=== PATIENT | male | born 1980 | race Caucasian/White ===

== ENCOUNTER 2018-10-03 13:51 | Inpatient (IN) | payer MEDICAID, OTHER ==
[~2018-10-03] VITALS: Ht 172.7 cm; Wt 71.7 kg
[2018-10-03] VITALS (16 sets, daily range): BP systolic 129–171; BP diastolic 76–101
[2018-10-03] MEDS ORDERED: LIDOCAINE 1%-EPI 1:100,000 20 ML VIAL ONE (14:07)
[2018-10-03] MEDS ORDERED: LIDOCAINE 1% INJ 50 ML MDV IJ ONE (14:23)
[2018-10-03] MEDS ORDERED: LIDOCAINE 1%-EPI 1:100,000 20 ML VIAL TP ONE (14:30)
[2018-10-03] MEDS ORDERED: HYDROCODONE/APAP 5/325MG 1 EACH TABLET ONE (14:40)
[2018-10-03] MEDS ORDERED: HYDROCODONE/APAP 5/325MG 1 EACH TABLET PO ONE (15:00)
[2018-10-03 15:29] LABS: BASOPHILS % (AUTO) 0.4 % (0.0-2.0); EOSINOPHILS % (AUTO) 0.7 % (0.0-6.0); HEMATOCRIT 35 % (39-51); HEMOGLOBIN 11.6 g/dL (13.5-17.5); LYMPHOCYTES # (AUTO) 0.9 /CMM (0.8-4.8); MEAN CORPUSCULAR HGB CONC 33 g/dl (31.0-36.0); MEAN CORPUSCULAR VOLUME 79 fL (80-96); MONOCYTES # (AUTO) 0.7 /CMM (0.1-1.30); MONOCYTES % (AUTO) 6.8 % (2.0-12.0); NEUTROPHILS # (AUTO) 8.3 /CMM (1.8-8.9); NEUTROPHILS % (AUTO) 83.1 % (43.0-81.0); PLATELET COUNT (AUTO) 348 /CMM (150-450)
[2018-10-03] MEDS ORDERED: IV NS 0.9% 500 ML BAG IV ONE (15:30)
[2018-10-03] MEDS ORDERED: ONDANSETRON HCL/PF 4 MG/2 ML VIAL IVP ONE (15:30)
[2018-10-03] MEDS ORDERED: LEVETIRACETAM (500MG) 1,000 MG in IV NS 0.9% 100 ML IV SCH ×4 (15:30)
[2018-10-03 15:39] LABS: CALCIUM, SERUM 8.6 mg/dL (8.5-10.1); CREATININE 0.9 mg/dL (0.6-1.3); POTASSIUM 3.9 mmol/L (3.5-5.1)
[2018-10-03 15:44] LABS: ALBUMIN 3.4 g/dL (3.4-5.0); BILIRUBIN,TOTAL 0.1 mg/dL (0.2-1.0); TOTAL PROTEIN, SERUM 7.1 g/dL (6.4-8.2)
[2018-10-03] MEDS ORDERED: CEFAZOLIN 1 GM in IV D5W 50 ML IV ONE (16:00)
[2018-10-03] MEDS ORDERED: ONDANSETRON HCL/PF 4 MG/2 ML VIAL ONE (16:18)
[2018-10-03] MEDS ORDERED: Z GUARD REMEDY 2 OZ OINT TP PRN (17:30)
[2018-10-03] MEDS ORDERED: LORAZEPAM INJ 2 MG/ML VIAL IV PRN (17:30)
[2018-10-03] MEDS ORDERED: MAGNESIUM HYDROXIDE 30 ML UDC PO PRN (17:30)
[2018-10-03] MEDS ORDERED: ZOLPIDEM TARTRATE 5 MG TABLET PO PRN (17:30)
[2018-10-03] MEDS ORDERED: ACETAMINOPHEN 325 MG TABLET PO PRN (17:30)
[2018-10-03] MEDS: ONDANSETRON HCL/PF 4 MG/2 ML VIAL IVP PRN (18:31)
[2018-10-03 19:08] LABS: IRON, SERUM 33 ug/dl (50-175); TOTAL IRON BINDING CAPACITY 384 ug/dl (250-450)
[2018-10-03] MEDS: HYDROCODONE/APAP 5/325MG 1 EACH TABLET PO PRN (23:16)
[2018-10-04] VITALS (29 sets, daily range): BP systolic 108–163; BP diastolic 62–107
[2018-10-04 04:42] LABS: BASOPHILS % (AUTO) 0.3 % (0.0-2.0); EOSINOPHILS % (AUTO) 0.4 % (0.0-6.0); HEMATOCRIT 33 % (39-51); HEMOGLOBIN 10.9 g/dL (13.5-17.5); LYMPHOCYTES # (AUTO) 1.5 /CMM (0.8-4.8); LYMPHOCYTES % (AUTO) 18.1 % (20.0-44.0); MEAN CORPUSCULAR HGB CONC 34 g/dl (31.0-36.0); MEAN CORPUSCULAR VOLUME 79 fL (80-96); MONOCYTES # (AUTO) 0.8 /CMM (0.1-1.30); MONOCYTES % (AUTO) 9.8 % (2.0-12.0); NEUTROPHILS % (AUTO) 71.4 % (43.0-81.0); PLATELET COUNT (AUTO) 338 /CMM (150-450); RED BLOOD CELL COUNT(AUTO) 4.14 MIL/uL (4.5-6.0); WHITE BLOOD COUNT (AUTO) 8.3 K/uL (4.3-11.0)
[2018-10-04 04:52] LABS: CALCIUM, SERUM 8.3 mg/dL (8.5-10.1); CREATININE 0.8 mg/dL (0.6-1.3); PHOSPHORUS 3.4 mg/dL (2.5-4.9); POTASSIUM 3.7 mmol/L (3.5-5.1)
[2018-10-04] MEDS: LEVETIRACETAM SOL (5 ML) 100 MG/ML UDC PO SCH ×2 (05:33→17:15)
[2018-10-04] MEDS: ONDANSETRON HCL/PF 4 MG/2 ML VIAL IVP PRN ×3 (08:35→20:28)
[2018-10-04] MEDS: HYDROCODONE/APAP 5/325MG 1 EACH TABLET PO PRN ×2 (08:36→13:07)
[2018-10-05] VITALS: BP 140/89
[2018-10-05 04:00] VITALS: BP 136/85
[2018-10-05] MEDS: LEVETIRACETAM SOL (5 ML) 100 MG/ML UDC PO SCH ×3 (05:42→18:25)
[2018-10-05 06:29] LABS: BASOPHILS % (AUTO) 0.3 % (0.0-2.0); EOSINOPHILS % (AUTO) 0.9 % (0.0-6.0); HEMATOCRIT 33 % (39-51); HEMOGLOBIN 11.2 g/dL (13.5-17.5); LYMPHOCYTES # (AUTO) 1.4 /CMM (0.8-4.8); LYMPHOCYTES % (AUTO) 21.7 % (20.0-44.0); MEAN CORPUSCULAR HGB CONC 34 g/dl (31.0-36.0); MEAN CORPUSCULAR VOLUME 79 fL (80-96); MONOCYTES # (AUTO) 0.7 /CMM (0.1-1.30); MONOCYTES % (AUTO) 11.5 % (2.0-12.0); NEUTROPHILS # (AUTO) 4.2 /CMM (1.8-8.9); NEUTROPHILS % (AUTO) 65.6 % (43.0-81.0); PLATELET COUNT (AUTO) 329 /CMM (150-450); WHITE BLOOD COUNT (AUTO) 6.5 K/uL (4.3-11.0)
[2018-10-05 06:39] LABS: CALCIUM, SERUM 8.5 mg/dL (8.5-10.1); CREATININE 0.8 mg/dL (0.6-1.3); PHOSPHORUS 3.5 mg/dL (2.5-4.9); POTASSIUM 3.6 mmol/L (3.5-5.1)
[2018-10-05 08:00] VITALS: BP 130/72
[2018-10-05] MEDS: HYDROCODONE/APAP 5/325MG 1 EACH TABLET PO PRN ×3 (09:20→18:25)
[2018-10-05] MEDS ORDERED: ACET325T53 PO (14:10)
[2018-10-05] MEDS ORDERED: LEVE100S PO (14:10)
[2018-10-05] MEDS ORDERED: ONDA4TAB5 PO (14:10)
[2018-10-05] MEDS: ONDANSETRON HCL/PF 4 MG/2 ML VIAL IVP PRN (15:21)
[2018-10-05 16:00] VITALS: BP 143/85
== END 2018-10-05 18:29 | disposition home or self-care (01) | DRG 115 ==
LOC: ER 13:54 → EDBD 13:54 → ICU 16:40 → TELE1 10-04 18:38 → MEDSG1 10-05 09:41
PROVIDERS: ADMIT Nurse Practitioner Acute Care; ATTEND Nurse Practitioner Acute Care
DX: S02.82XA Fracture of other specified skull and facial bones, left side, initial encounter for closed fracture (principal); S06.4X0A Epidural hemorrhage without loss of consciousness, initial encounter; S01.01XA Laceration without foreign body of scalp, initial encounter; Y09 Assault by unspecified means; Y92.89 Other specified places as the place of occurrence of the external cause; F12.90 Cannabis use, unspecified, uncomplicated
CPT/HCPCS: 36415; 70450-TC; 70480-TC; 71045-TC; 80048-TC; 80061-TC; 80076-TC; 83540-TC; 83735-TC; 84100-TC; 85025-TC; 85730-TC; 87081-TC; A6402; A6403; G0378; J0690; J1953; J2405; J3490; J7030; J7040; J7060

== ENCOUNTER 2018-10-14 17:48 | Emergency (ER) | payer MEDICAID ==
[~2018-10-14] VITALS: Ht 180.3 cm; Wt 72.6 kg
[~2018-10-14 17:48] MED LIST: ACET325T53 PO; LEVE100S PO; ONDA4TAB5 PO
--- NOTE | 2018-10-14 18:45 | NUR ---
PT WAS TRIAGED EARLIER AND NOW IS GOING TO ER 18 CH1. PT IS AMBULATORY WITH A STEADY GAIT. PT HAD MULTIPLE YESENIA AND SUTRES THAT NEED REMOVAL FROM THE TOP OF HIS HEAD AND SUTURES ON THE RT CHEEK THAT NEED REMOVAL. PT STATED THAT HE BUMPED HIS HEAD THE OTHER NIGHT WHILE SLEEPING AND THE NEXT DAY HE HAD A BOUT OF "BLURRED VISION" AND HE FELT PRESSURE ON HIS RT HAND/WRIST. PT APPEARS ANXIOUS. PT STATED: "DR [place] TOLD ME THAT I HAD A HEMATOMA, I'M JUST WORRIED THAT I'M STILL BLEEDING IN MY HEAD."
--- NOTE | 2018-10-14 19:18 | NUR ---
SUTURE AND STAPLE SET UP AT CHAIRSIDE.
--- NOTE | 2018-10-14 19:25 | NUR ---
SUTURES AND YESENIA REMOVED BY Miguel RAMIRES PA-C
--- NOTE | 2018-10-14 20:05 | NUR ---
Patient discharged to home in stable condition. Written and verbal after care instructions given. Patient verbalizes understanding of instruction. PT REC'D A COPY OF CT FINDING. PT AMBULATED OUT WITH A STEADY GAIT. VSS. NAD NOTED.
[2018-10-14 20:17] VITALS: BP 126/75
== END 2018-10-14 20:17 | disposition home or self-care (01) ==
LOC: ER 17:54
DX: R51 Headache (principal); S01.01XD Laceration without foreign body of scalp, subsequent encounter; Z60.2 Problems related to living alone; Z79.899 Other long term (current) drug therapy; X58.XXXD Exposure to other specified factors, subsequent encounter
CPT/HCPCS: 70450; 99284; A4606; A6402